=== PATIENT | female | born 1985 | race Two or more races ===

== ENCOUNTER 2020-06-11 23:25 | Emergency (ER) | payer BC ==
[2020-06-11 23:43] VITALS: BP 145/84; PULSE 78; TEMP 99; BMI 32.5
[2020-06-11] MEDS ORDERED: IBUPROFEN 600 MG TABLET (FP) PO ONE (23:53)
== END 2020-06-12 00:50 | disposition home or self-care (01) ==
LOC: FER 23:25
DX: R07.89 Other chest pain (principal)
CPT/HCPCS: 71046-TC-FY; 93005; 99284-25